=== PATIENT | female | born 1975 | race Caucasian/White ===

== ENCOUNTER → 2020-06-23 | Outpatient (CLI) | payer OTHER ==
--- NOTE | 2020-06-24 04:00 | MR ---
EXAMINATION TYPE: MR brain wo/w con DATE OF EXAM: 06/23/2020 COMPARISON: None HISTORY: BLE/BUE tingling and weakness. Evaluate for MS. CONTRAST: Standard multiplanar, multisequence MRI departmental protocol utilizing 7.5 mL intravenous Gadavist g adolinium contrast. Ventricles have normal size. There is no mass effect nor midline shift. There is no sign of intracran ial hemorrhage. Diffusion images show no evidence of cortical infarct. The baltazar-white matter structur es have fairly normal signal pattern. There is no evidence of cerebral edema. Brainstem is intact. Co rpus callosum appears normal. Sella turcica is normal. There is no evidence of orbital mass. The contrast images show no pathologic enhancement. There is normal enhancement of the venous sinuses . IMPRESSION: Normal MR scan of the brain. No evidence of demyelinating disease.
== END | disposition home or self-care (01) ==
LOC: RADMRIMAIN 19:09
PROVIDERS: ATTEND Nurse Practitioner Family
DX: R90.82 White matter disease, unspecified (principal)
CPT/HCPCS: 70553; A9585